=== PATIENT | female | born 1990 | race Caucasian/White ===

== ENCOUNTER 2020-04-05 12:19 | Emergency (ER) | payer MEDICAID ==
[~2020-04-05] VITALS: Ht 165.1 cm; Wt 116.6 kg
[2020-04-05 12:32] VITALS: Ht 165.1 cm; Wt 116.6 kg
[2020-04-05 14:37] LABS: BASOPHIL % 0.5 % (0-2)
[2020-04-05 14:38] LABS: PLATELET COUNT 451 x10^3mcL (130-400); RED CELL DISTRIBUTION WIDTH 16.1 % (11.5-14.5)
[2020-04-05 14:55] LABS: CALCIUM 8.6 mg/dL (8.5-10.1); CARBON DIOXIDE 28.4 mmol/L (21-32); CHLORIDE SERUM 102 mmol/L (98-107); CREATININE SERUM 0.7 mg/dL (0.6-1.0); GFR1 > 60 mL/min; GLUCOSE SERUM 85 mg/dL (74-106); POTASSIUM SERUM 3.4 mmol/L (3.5-5.1); SODIUM SERUM 137 mmol/L (136-145)
[2020-04-05 14:57] LABS: AMPHETAMINE QUAL UR NONE DETECTED (See below)
[2020-04-05 14:59] LABS: ALBUMIN 3.6 g/dL (3.4-5.0); ALKALINE PHOSPHATASE 70 U/L (46-116); ALT/SGPT 27 U/L (14-59); AST/SGOT 18 U/L (15-37); BILIRUBIN TOTAL 0.3 mg/dL (0.20-1.00); TOTAL PROTEIN, SERUM 7.3 g/dL (6.4-8.2)
[2020-04-05 15:37] VITALS: BP 120/69
== END 2020-04-05 15:37 | disposition home or self-care (01) ==
LOC: ED 12:19
PROVIDERS: Emergency Medicine
DX: F41.9 Anxiety disorder, unspecified (principal)
CPT/HCPCS: J2405; J7030

== ENCOUNTER 2020-06-22 06:19 | Emergency (ER) | payer OTHER ==
[~2020-06-22] VITALS: Ht 165.1 cm; Wt 118.8 kg
[2020-06-22 06:25] VITALS: Ht 165.1 cm; Wt 118.8 kg
[2020-06-22 07:19] LABS: BASOPHIL % 0.5 % (0-2)
[2020-06-22 07:25] LABS: CALCIUM 8.4 mg/dL (8.5-10.1); CARBON DIOXIDE 29.3 mmol/L (21-32); CHLORIDE SERUM 105 mmol/L (98-107); CREATININE SERUM 0.7 mg/dL (0.6-1.0); GFR1 > 60 mL/min; GLUCOSE SERUM 112 mg/dL (74-106); POTASSIUM SERUM 3.8 mmol/L (3.5-5.1); SODIUM SERUM 139 mmol/L (136-145)
[2020-06-22 07:30] LABS: ALBUMIN 3.7 g/dL (3.4-5.0); ALKALINE PHOSPHATASE 71 U/L (46-116); ALT/SGPT 25 U/L (14-59); AST/SGOT 22 U/L (15-37); BILIRUBIN TOTAL 0.6 mg/dL (0.20-1.00); TOTAL PROTEIN, SERUM 7.3 g/dL (6.4-8.2)
[2020-06-22 08:02] LABS: PLATELET COUNT 451 x10^3mcL (130-400); RED CELL DISTRIBUTION WIDTH 14.9 % (11.5-14.5)
[2020-06-22 09:18] VITALS: BP 139/86
== END 2020-06-22 09:18 | disposition home or self-care (01) ==
LOC: ED 06:19
PROVIDERS: Emergency Medicine
DX: G43.909 Migraine, unspecified, not intractable, without status migrainosus (principal); R07.89 Other chest pain; F41.9 Anxiety disorder, unspecified
CPT/HCPCS: J1885

== ENCOUNTER 2020-07-22 17:58 | Emergency (ER) | payer OTHER ==
[~2020-07-22] VITALS: Ht 165.1 cm; Wt 99.8 kg
[2020-07-22 18:21] VITALS: Ht 165.1 cm; Wt 99.8 kg
[2020-07-22 21:28] VITALS: BP 148/82
== END 2020-07-22 21:28 | disposition home or self-care (01) ==
LOC: ED 17:58
DX: M79.10 Myalgia, unspecified site (principal); R04.2 Hemoptysis; R50.9 Fever, unspecified; R51.9 Headache, unspecified; G89.29 Other chronic pain; M54.5 Low back pain; E66.9 Obesity, unspecified; Z68.36 Body mass index [BMI] 36.0-36.9, adult; Z20.828 Contact with and (suspected) exposure to other viral communicable diseases
CPT/HCPCS: U0003